=== PATIENT | female | born 1940 | race Caucasian/White ===

== ENCOUNTER → 2017-03-16 | Outpatient (CLI) | payer MEDICARE, OTHER ==
--- NOTE | 2017-03-16 19:04 | Diagnostic Imaging Report ---
PROCEDURE: US Thyroid. TECHNIQUE: Multiple real-time grayscale images were obtained of the thyroid in various projections. INDICATION: History of left thyroid nodule. Followup. COMPARISON: 08/10/2015. FINDINGS: The right lobe measures 3.7 x 1.4 x 1.5 cm. There is a single hypoechoic solid cystic subcentimeter nodule in the mid right lobe measuring approximately 3 x 4 x 4 mm. This is essentially stable compared to prior exam. No new dominant nodules or masses are seen on either side. Thyroid parenchyma is otherwise diffusely homogeneous. Color flow images show normal vascularity. Isthmus is within normal limits. IMPRESSION: 1. Stable small right-sided thyroid nodule as described above. No new dominant nodule or mass. Dictated by: Dictated on workstation # [id number]
== END ==
LOC: RAD 13:44
PROVIDERS: ATTEND Otolaryngology Otolaryngology/Facial Plastic Surgery
DX: E04.1 Nontoxic single thyroid nodule (principal)
CPT/HCPCS: 76536

== ENCOUNTER → 2018-07-26 | Outpatient (CLI) | payer MEDICARE, OTHER ==
--- NOTE | 2018-07-26 19:35 | Diagnostic Imaging Report ---
INDICATION: Right breast density. Patient presents for additional views. COMPARISON: Correlation is made with prior mammogram from 05/17/2018. EXAMINATION: Patient returned and 2D and 3D diagnostic mammography was performed including conventional CC and MLO views as well as a conventional 90 degree lateral view and exaggerated CC view. FINDINGS: Right breast is heterogeneously dense, limiting the sensitivity of mammography. The area of focal density in the far posterior right breast on the MLO view on the outside study is no longer present and most likely represented superimposed tissue. Rounded density in the upper-outer right breast remains in place and most likely represents a cyst. There are benign calcifications present. IMPRESSION: BI-RADS 0. 1. Resolution of density noted in the far posterior right breast on the outside MLO view is consistent with summation artifact. 2. Rounded density in upper outer right breast. Further evaluation of this area with ultrasound is recommended, it most like represents a cyst. In addition, left breast ultrasound will be performed per screening mammogram report. Dictated by: Dictated on workstation # [id number]
--- NOTE | 2018-07-26 19:36 | Diagnostic Imaging Report ---
INDICATION: Abnormal mammograms. This study is performed for further evaluation. COMPARISON: Comparison is made with diagnostic mammogram earlier the same day as well as screening mammogram from 05/17/2018. FINDINGS: Sonographic interrogation of the upper-outer right breast demonstrates an ovoid hypoechoic solid-appearing nodule at the 9:30 location 4 cm from the nipple measuring 18 x 9 x 16 mm. This is stable when compared with prior breast ultrasound from 07/07/2014. No other abnormalities in the right breast are identified. On the left at the 12 o'clock location, there is a hypoechoic circumscribed solid-appearing nodule 3 cm from the nipple measuring 9 mm x 5 mm x 11 mm, stable when compared with prior exam. No other significant abnormality is seen. IMPRESSION: Bilateral breast nodules, most suggestive of fibroadenomas. These appear stable when compared with prior ultrasound from 07/07/2014 and likely account for the mammographic densities. Patient may return to routine annual screening mammography. Dictated by: Dictated on workstation # [id number]
== END ==
LOC: RAD 12:57
PROVIDERS: ATTEND Student in an Organized Health Care Education/Training Program
DX: N63.10 Unspecified lump in the right breast, unspecified quadrant (principal); N63.20 Unspecified lump in the left breast, unspecified quadrant
CPT/HCPCS: 76642

== ENCOUNTER → 2019-05-01 | Outpatient (CLI) | payer MEDICARE, OTHER ==
--- NOTE | 2019-05-01 15:30 | Diagnostic Imaging Report ---
PROCEDURE: US Thyroid. TECHNIQUE: Multiple real-time grayscale images were obtained of the thyroid in various projections. INDICATION: Thyroid nodule. COMPARISON: Correlation is made with prior thyroid ultrasound from 03/16/2017. FINDINGS: Right lobe of the thyroid measures 3.8 x 1.6 x 1.3 cm and the left lobe measures 3.5 x 1.4 x 1.1 cm. Isthmus is 3 mm in thickness. Tiny hypoechoic nodules are identified in both lobes of the thyroid gland. Previously seen nodule in the mid right lobe is stable at 4 mm. Tiny nodule in upper pole of right lobe is seen measuring approximately 3-4 mm. Tiny nodule in lower pole of left lobe is seen measuring approximately 2-3 mm. No dominant thyroid mass is detected. IMPRESSION: Subcentimeter thyroid nodules. No dominant thyroid mass is detected. Dictated by: Dictated on workstation # [id number]
== END ==
LOC: RAD 13:43
PROVIDERS: ATTEND Otolaryngology Otolaryngology/Facial Plastic Surgery
DX: E04.2 Nontoxic multinodular goiter (principal)
CPT/HCPCS: 76536